=== PATIENT | male | born 1990 | race Caucasian/White ===

== ENCOUNTER 2017-06-26 11:15 | Emergency (ER) | payer OTHER ==
[2017-06-26 13:15] VITALS: BP 126/73
[2017-06-26] MEDS ORDERED: traMADol TAB* 50 MG PO ONE (13:37)
--- NOTE | 2017-06-26 18:15 | ED ---
Laceration/Wound HPI - HPI Summary HPI Summary: Patient presents to the ED with a right distal tip of the thumb laceration from a mandolin. Mild amount of bleeding. Bleeding is controlled on arrival. Denies numbness, tingling, color, temperature changes to the area. The skin flap is intact. Small amount of nail involvement. Denies any other injuries. Denies blood thinners. Patient is otherwise healthy and voices no concerns. Vital signs are stable on arrival. Tetanus is up-to-date 4 years ago. Right- hand dominant. - History of Current Complaint Stated Complaint: LAC ON RT THUMB Time Seen by Provider: 06/26/17 11:23 Hx Obtained From: Patient Onset/Duration: Sudden Onset Aggravating: Movement Alleviating: Compression Timing: Constant Onset Severity: Mild Current Severity: Mild Pain Intensity: 0 Pain Scale Used: 0-10 Numeric Associated Signs & Symptoms: Negative Related Hx: Dominant Hand (Right) - Allergy/Home Medications Allergies/Adverse Reactions: Allergies Allergy/AdvReac Type Severity Reaction Status Date / Time No Known Allergies Allergy Verified 06/26/17 11:19 PMH/Surg Hx/FS Hx/Imm Hx Previously Healthy: Yes - Immunization History Hx Pertussis Vaccination: No Immunizations Up to Date: Yes Infectious Disease History: No Infectious Disease History: Denies: Traveled Outside the [place] in Last 30 Days - Social History Occupation: Unemployed Lives: With Family Alcohol Use: Weekly Hx Substance Use: No Substance Use Type: Reports: None Hx Tobacco Use: No Smoking Status (MU): Never Smoked Tobacco Review of Systems Constitutional: Negative Negative: Fever, Chills, Fatigue Eyes: Negative Cardiovascular: Negative Gastrointestinal: Negative Genitourinary: Negative Positive: no symptoms reported, see HPI Musculoskeletal: Negative Positive: Other - small 0.5 cm laceration to the distal tip of the right thumb Neurological: Negative All Other Systems Reviewed And Are Negative: Yes Physical Exam Triage Information Reviewed: Yes Vital Signs On Initial Exam: Initial Vitals Temp Pulse Resp BP Pulse Ox 97.0 F 92 16 124/83 97 06/26/17 11:19 06/26/17 11:19 06/26/17 11:19 06/26/17 11:19 06/26/17 11:19 Vital Signs Reviewed: Yes Appearance: Positive: Well-Appearing, Well-Nourished Skin: Positive: Warm, Skin Color Reflects Adequate Perfusion, Other - Small 0.5 cm laceration to the distal tip of the right thumb. Appropriated edges Head/Face: Positive: Normal Head/Face Inspection Eyes: Positive: EOMI, FÁTIMA, Conjunctiva Clear Neck: Positive: Supple, No Lymphadenopathy Respiratory/Lung Sounds: Positive: Clear to Auscultation, Breath Sounds Present Cardiovascular: Positive: Pulses are Symmetrical in both Upper and Lower Extremities Musculoskeletal: Positive: Strength/ROM Intact Neurological: Positive: Speech Normal - No numbness or tingling Psychiatric: Positive: Normal, Affect/Mood Appropriate Diagnostics - Vital Signs Vital Signs Temp Pulse Resp BP Pulse Ox 06/26/17 13:14 98.2 F 88 16 126/73 98 06/26/17 11:19 97.0 F 92 16 124/83 97 - Laboratory Lab Statement: Any lab studies that have been ordered have been reviewed, and results considered in the medical decision making process. Laceration Repair Course/Dx - Course Course Of Treatment: During the course of treatment the thumb is evaluated for the need for sutures. The flap continues to be present on the distal tip and there is no need for sutures at this time. The area is successfully appropriated edges together with adhesive. 3 Steri-Strips placed over the area. Tube gauze used for gauze wrap. Patient is given care instructions on Steri-Strips and adhesive care. He is okay for discharge at this time. - Differential Dx Differental Diagnoses: Avulsion - Clinical Impression Provider Diagnoses: Avulsion of skin of thumb Discharge - Discharge Plan Condition: Stable Disposition: HOME Patient Education Materials: Skin Adhesive Care (ED), Steristrips (ED) Referrals: [facility] [Primary Care Provider] - Additional Instructions: Please leave gauze wrapped until tomorrow The Steri-Strips will come off on their own in a few days If they do not, you may gently pull them off The adhesive glue will slough off in a few days Keep dry for at least 24 hours
== END 2017-06-26 13:15 | disposition home or self-care (01) ==
LOC: ED 11:15
DX: S61.011A Laceration without foreign body of right thumb without damage to nail, initial encounter (principal); W26.8XXA Contact with other sharp object(s), not elsewhere classified, initial encounter
CPT/HCPCS: 99281

== ENCOUNTER 2022-11-28 10:56 | Inpatient (IN) ==
[2022-11-28 13:20] LABS: ABS Lymphocytes 1.5 10^3/uL (1.0-4.8); ABS Monocytes 0.6 10^3/uL (0.0-1.1); ABS Neutrophils 8.1 10^3/uL (1.5-7.6); ABS Nucleated RBC 0.01 10^3/ul; Eosinophil % 0.3 %; Hematocrit 43.1 % (38-53); Hemoglobin 15.3 g/dL (13.2-16.3); Lymphocyte % 14.9 %; Mean Corpuscular Hgb Conc 35.6 g/dL (31-36); Mean Corpuscular Volume 95.7 fL (80-97); Mean Platelet Volume 7.3 fL (7.5-11.2); Nucleated Red Blood Cells % 0.1 /100 WBC (0.0-0.4); Platelet Count 362 10^3/uL (150-450); Red Blood Count 4.51 10^6/uL (4.06-5.63); Red Cell Distribution Width 12.6 % (12-17); White Blood Count 10.3 10^3/uL (3.6-10.2)
[2022-11-28 13:22] LABS: Urine Appearance Clear; Urine Bilirubin Negative (Negative); Urine Blood 1+ (Negative); Urine Color Yellow; Urine Glucose Negative (Negative); Urine Ketones Negative (Negative); Urine Nitrite Negative (Negative); Urine Protein Negative (Negative); Urine Specific Gravity 1.021 (1.002-1.030); Urine Urobilinogen Negative (Negative)
[2022-11-28 13:27] LABS: Urine Bacteria Absent (Absent); Urine Red Blood Cell 3+(>10/hpf) (Absent); Urine Squamous Epithelial Cell Present (Absent); Urine White Blood Cell 1+(6-10/hpf) (Absent)
[2022-11-28 13:54] LABS: ALT 40 U/L (7-52); AST 21 U/L (13-39); Albumin 4.5 g/dL (3.2-5.2); Albumin/Globulin Ratio 1.5 (1-3); Alkaline Phosphatase 63 U/L (35-149); Anion Gap 8 mmol/L (2-16); Blood Urea Nitrogen 11 mg/dL (6-24); CO2 Carbon Dioxide 22 mmol/L (22-32); Calcium 9.4 mg/dL (8.6-10.3); Chloride 107 mmol/L (101-111); Creatinine, Serum 0.96 mg/dL (0.67-1.17); Glucose 101 mg/dL (70-100); Potassium 3.8 mmol/L (3.5-5.0); Sodium 137 mmol/L (135-145); Total Protein 7.5 g/dL (6.4-8.9); eGFR CKD-EPI 106.4 (>60)
[2022-11-28 13:57] LABS: Urine Benzodiazepine Screen None Detected (None Detect); Urine Cannabinoids Screen Presumptive Positive (None Detect); Urine Opiates Screen None Detected (None Detect)
[2022-11-28 14:02] LABS: Acetaminophen < 15 mcg/mL; Alcohol, S < 13 mg/dL (<13); Salicylate < 2.50 mg/dL (<30)
[2022-11-28] MEDS ORDERED: Al Hydrox/Mg Hydrox/Simet LIQ 30 ML UDC PO PRN (15:03)
[2022-11-29 08:18] LABS: HDL Cholesterol 32.3 mg/dL
[2022-11-29] MEDS: Vitamin THERAPEUTIC TAB PO SCH (09:25)
[2022-11-29] MEDS ORDERED: Albuterol HFA INHALER 8 gm MDI INH PRN (11:54)
[2022-11-29] MEDS: DULoxetine DR 30 mg CAP PO SCH (12:49)
[2022-11-30] MEDS: DULoxetine DR 30 mg CAP PO SCH (08:45)
[2022-11-30] MEDS: Vitamin THERAPEUTIC TAB PO SCH (08:45)
[2022-12-01] MEDS: DULoxetine DR 30 mg CAP PO SCH (08:11)
[2022-12-01] MEDS: Vitamin THERAPEUTIC TAB PO SCH (08:11)
[2022-12-01 10:03] VITALS: BP 160/104
== END 2022-12-01 11:04 | disposition home or self-care (01) | DRG 751 ==
LOC: ED 10:56 → EDHOLD 14:34 → BSU 14:54
PROVIDERS: ADMIT Psychiatry & Neurology Addiction Psychiatry; ATTEND Psychiatry & Neurology Addiction Psychiatry